=== PATIENT | male | born 1950 | race Caucasian/White ===

== ENCOUNTER 2019-10-19 12:02 | Outpatient (REF) | payer MEDICARE, SELFPAY ==
[2019-10-19 22:28] LABS: BUN 13 mg/dL (7-18); CREATININE 0.81 mg/dL (0.70-1.30); Calculated LDL 90 mg/dL; Chloride 104 mmol/L (98-107); Cholesterol 159 mg/dL (<200); Glucose 96 mg/dL (74-106); HDL Cholesterol 47 mg/dL (40-60); Potassium 4.9 mmol/L (3.5-5.1); Sodium 142 mmol/L (136-145); Triglyceride 114 mg/dL (<150)
== END 2019-10-19 12:22 ==
LOC: NCHCN 12:02
PROVIDERS: PCP Internal Medicine; Visit Provider Internal Medicine
DX: R03.0 Elevated blood-pressure reading, without diagnosis of hypertension (principal); Z13.6 Encounter for screening for cardiovascular disorders; Z01.818 Encounter for other preprocedural examination
CPT/HCPCS: 80048; 80061

== ENCOUNTER 2021-09-30 12:46 | Outpatient (REF) | payer MEDICARE, SELFPAY ==
[2021-09-30 14:48] LABS: Anion Gap 8.1 mmol/L (3-11); BUN 13 mg/dL (7-18); CO2 28.9 mmol/L (21.0-32.0); CREATININE 0.9 mg/dL (0.70-1.30); Calcium 8.9 mg/dL (8.5-10.1); Chloride 104 mmol/L (98-107); Glucose 109 mg/dL (74-106); Potassium 4.2 mmol/L (3.5-5.1); Sodium 141 mmol/L (136-145)
== END 2021-09-30 12:47 | disposition home or self-care (01) ==
LOC: NCHCN 12:46
PROVIDERS: PCP Internal Medicine; Visit Provider Internal Medicine
DX: R03.0 Elevated blood-pressure reading, without diagnosis of hypertension (principal); Z00.00 Encounter for general adult medical examination without abnormal findings
CPT/HCPCS: 80048

== ENCOUNTER 2022-10-07 13:11 | Outpatient (REF) | payer MEDICARE, SELFPAY ==
[2022-10-07 17:46] LABS: Anion Gap 5.4 mmol/L (3-11); BUN 14 mg/dL (7-18); CO2 30.6 mmol/L (21.0-32.0); CREATININE 0.9 mg/dL (0.70-1.30); Calcium 8.9 mg/dL (8.5-10.1); Calculated LDL 95 mg/dL (<100); Chloride 103 mmol/L (98-107); Cholesterol 168 mg/dL (<200); Estimated GFR 91.88 (mL/min/1.73m2); Glucose 107 mg/dL (74-106); HDL Cholesterol 64 mg/dL (40-60); Potassium 4.3 mmol/L (3.5-5.1); Sodium 139 mmol/L (136-145); Triglyceride 47 mg/dL (<150)
== END 2022-10-07 13:12 | disposition home or self-care (01) ==
LOC: NCHCN 13:11
PROVIDERS: PCP Internal Medicine; Visit Provider Internal Medicine
DX: R03.0 Elevated blood-pressure reading, without diagnosis of hypertension (principal); Z12.5 Encounter for screening for malignant neoplasm of prostate; R79.89 Other specified abnormal findings of blood chemistry
CPT/HCPCS: 80048; 80061; 84153

== ENCOUNTER 2023-10-11 10:14 | Outpatient (REF) | payer MEDICARE, SELFPAY ==
[2023-10-11 14:41] LABS: BUN 13 mg/dL (7-18); CREATININE 0.9 mg/dL (0.70-1.30); Calcium 8.8 mg/dL (8.5-10.1); Calculated LDL 112 mg/dL (<100); Chloride 107 mmol/L (98-107); Cholesterol 184 mg/dL (<200); Estimated GFR 91.31 (mL/min/1.73m2); Glucose 122 mg/dL (74-106); HDL Cholesterol 64 mg/dL (40-60); Potassium 4.2 mmol/L (3.5-5.1); Sodium 144 mmol/L (136-145); Triglyceride 44 mg/dL (<150)
== END 2023-10-11 10:15 | disposition home or self-care (01) ==
LOC: NCHCN 10:14
PROVIDERS: PCP Internal Medicine; Visit Provider Internal Medicine
DX: Z00.00 Encounter for general adult medical examination without abnormal findings (principal); E78.5 Hyperlipidemia, unspecified
CPT/HCPCS: 80048; 80061

== ENCOUNTER 2024-01-25 21:15 | Outpatient (REF) | payer MEDICARE, SELFPAY ==
[2024-01-25 21:50] LABS: HCT 46.7 % (40.0-50.0); HGB 15.9 g/dL (13.5-17.5); MCH 30.1 pg (27.0-33.0); MCV 88 fL (80-95); MPV 10.2 fL (8.0-11.0); Platelet Count 296 10^3/uL (130-400); RBC 5.28 10^6/uL (4.36-5.78); RDW 13.9 % (11.8-14.1); RDW-SD 45.1 fL; WBC 7.86 10^3/uL (4.4-10.8)
[2024-01-25 22:07] LABS: ALT 28 U/L (16-63); AST 24 U/L (15-37); Albumin 3.7 g/dL (3.4-5.0); Alkaline Phosphatase 77 U/L (46-116); Anion Gap 9.5 mmol/L (3-11); BUN 19 mg/dL (7-18); Bilirubin, Total 0.5 mg/dL (0.2-1.0); C-Reactive Protein 0.85 mg/dL (<or=0.5); CO2 26.5 mmol/L (21.0-32.0); CREATININE 1.1 mg/dL (0.70-1.30); Calcium 8.9 mg/dL (8.5-10.1); Chloride 106 mmol/L (98-107); Estimated GFR 71.77 (mL/min/1.73m2); Glucose 107 mg/dL (74-106); Potassium 3.9 mmol/L (3.5-5.1); Sodium 142 mmol/L (136-145); Total Protein 7.6 g/dL (6.4-8.2)
[2024-01-25 22:25] LABS: Vitamin D 25 Total 18.5 ng/mL (30-100)
== END 2024-01-25 21:16 | disposition home or self-care (01) ==
LOC: NCHCN 21:15
PROVIDERS: PCP Internal Medicine; Visit Provider Internal Medicine
DX: K51.00 Ulcerative (chronic) pancolitis without complications (principal)
CPT/HCPCS: 80053; 82306; 85027; 86140

== ENCOUNTER 2024-10-16 15:54 | Outpatient (REF) | payer MEDICARE, SELFPAY ==
[2024-10-16 15:28] LABS: HCT 48.9 % (40.0-50.0); HGB 15.8 g/dL (13.5-17.5); MCH 30.3 pg (27.0-33.0); MCHC 32.3 % (32.0-36.0); MCV 94 fL (80-95); MPV 10.4 fL (8.0-11.0); Platelet Count 310 10^3/uL (130-400); RBC 5.21 10^6/uL (4.36-5.78); RDW 13.6 % (11.8-14.1); RDW-SD 47.6 fL; WBC 7.86 10^3/uL (4.4-10.8)
[2024-10-16 16:03] LABS: Hemoglobin A1C 5.6 % (<5.7)
[2024-10-16 16:42] LABS: ALT 30 U/L (16-63); AST 28 U/L (15-37); Albumin 3.6 g/dL (3.4-5.0); Alkaline Phosphatase 77 U/L (46-116); Anion Gap 6.4 mmol/L (3-11); BUN 17 mg/dL (7-18); Bilirubin, Total 0.69 mg/dL (0.2-1.0); CO2 30.6 mmol/L (21.0-32.0); Calcium 9.3 mg/dL (8.5-10.1); Calculated LDL 50 mg/dL (<100); Chloride 107 mmol/L (98-107); Cholesterol 135 mg/dL (<200); Estimated GFR 79.97 (mL/min/1.73m2); Glucose 108 mg/dL (74-106); HDL Cholesterol 79 mg/dL (40-60); Potassium 4.5 mmol/L (3.5-5.1); Sodium 144 mmol/L (136-145); Total Protein 7.7 g/dL (6.4-8.2); Triglyceride 31 mg/dL (<150)
== END 2024-10-16 15:55 | disposition home or self-care (01) ==
LOC: NCHCN 15:54
PROVIDERS: PCP Internal Medicine; Visit Provider Internal Medicine
DX: E78.5 Hyperlipidemia, unspecified (principal); R73.03 Prediabetes
CPT/HCPCS: 80053; 80061; 85027; 83036